=== PATIENT | male | born 1990 | race Caucasian/White ===

== ENCOUNTER 2020-04-07 10:32 | Emergency (ER) | payer BC, SELFPAY ==
[~2020-04-07] VITALS: Ht 180.3 cm; Wt 83.5 kg
[2020-04-07 10:35] VITALS: Ht 180.3 cm; Wt 83.5 kg
[2020-04-07 12:11] LABS: microscopic required? NO
[2020-04-07 12:17] LABS: BASOPHIL % 0.2 % (0-2); PLATELET COUNT 211 x10^3mcL (130-400)
[2020-04-07 12:32] LABS: UA SPECIFIC GRAVITY 1.015 (1.005-1.035); urine erythrocyte NEGATIVE (NEGATIVE)
[2020-04-07 13:02] LABS: CARBON DIOXIDE 26.9 mmol/L (21-32); CHLORIDE SERUM 101 mmol/L (98-107); CREATININE SERUM 1.1 mg/dL (0.7-1.3); GFR1 > 60 mL/min; GLUCOSE SERUM 81 mg/dL (74-106); POTASSIUM SERUM 3.9 mmol/L (3.5-5.1); SODIUM SERUM 138 mmol/L (136-145)
[2020-04-07 13:17] LABS: ALBUMIN 4.2 g/dL (3.4-5.0); ALKALINE PHOSPHATASE 49 U/L (46-116); ALT/SGPT 36 U/L (16-63); AST/SGOT 30 U/L (15-37); C REACTIVE PROTEIN 0.4 mg/dL (<=0.9); LACTIC DEHYDROGENASE (LDH) 219 U/L (100-190); TOTAL PROTEIN, SERUM 7.8 g/dL (6.4-8.2)
[2020-04-07 14:33] VITALS: BP 109/67
== END 2020-04-07 14:33 | disposition home or self-care (01) ==
LOC: ED 10:32
PROVIDERS: Emergency Medicine
DX: J40 Bronchitis, not specified as acute or chronic (principal); Z20.828 Contact with and (suspected) exposure to other viral communicable diseases; Z88.6 Allergy status to analgesic agent; Z88.1 Allergy status to other antibiotic agents
CPT/HCPCS: 36600; 83880; 85378; 87804; Q0092; U0003-CS